=== PATIENT | female | born 1990 | race African-American/Black ===

== ENCOUNTER 2018-05-01 15:31 | Emergency (ER) | payer OTHER ==
--- NOTE | 2018-05-01 15:44 | PDOC ---
Rapid Medical Evaluation Chief Complaint: Cold Symptoms Time Seen by Provider: 05/01/18 15:39 Medical Evaluation: Allergies Allergy/AdvReac Type Severity Reaction Status Date / Time No Known Allergies Allergy Verified 10/15/15 23:13 05/01/18 15:43 I have performed a brief in-person evaluation of this patient. The patient presents with a chief complaint of: COUGH, RUNNY NOSE , SORETHROAT X 2 DAYS Pertinent physical exam findings: well, congested, moist cough I have ordered the following: Urine;UCG, Rapid strep The patient will proceed to the ED for further evaluation.
[2018-05-01 15:48] VITALS: BP 124/88; PULSE 109; TEMP 98.8; BMI 19.6
--- NOTE | 2018-05-01 16:20 | PDOC ---
History of Present Illness - General Chief Complaint: Cold Symptoms Stated Complaint: COLD SYMPTOMS Time Seen by Provider: 05/01/18 15:39 History Source: Patient Exam Limitations: Clinical Condition - History of Present Illness Initial Comments: 05/01/18 16:14 Patient with history of 12 years smoking history present with complain of three- day history of chest tightness, fatigue, sore throat and body aches. Patient reported smoking 8 cigarettes a day and suddenly quit 3 weeks ago. Denies fever , chills, dizziness, chest pain, palpitations, shortness of breath, sweats Timing/Duration: other (3 days) Past History - Past Medical History Allergies/Adverse Reactions: Allergies Allergy/AdvReac Type Severity Reaction Status Date / Time No Known Allergies Allergy Verified 05/01/18 15:43 Home Medications: Ambulatory Orders Ipratropium [place]ez 2 spray NS BID PRN #1 spray 05/01/18 Methylprednisolone [Medrol Dose [place]] 4 mg PO ASDIR #21 tablet 05/01/18 COPD: No - Suicide/Smoking/Psychosocial Hx Smoking History: Former smoker Have you smoked in the past 12 months: Yes Number of Cigarettes Smoked Daily: 4 If you are a former smoker, when did you quit?: 30 MONTHS Information on smoking cessation initiated: No Hx Alcohol Use: Yes (occasional) Drug/Substance Use Hx: No Review of Systems - Review of Systems Able to Perform ROS?: Yes Is the patient limited Polish proficient: No Constitutional: Yes: Malaise. No: Chills, Fever, Weakness HEENTM: Yes: See HPI, Throat Pain. No: Eye Pain, Blurred Vision, Tearing, Recent change in vision, Double Vision, Cataracts, Ear Pain, Ocular Prothesis, Ear Discharge, Nose Pain, Nose Congestion, Tinnitus, Nose Bleeding, Hearing Loss , Throat Swelling, Mouth Pain, Dental Problems, Difficulty Swallowing, Mouth Swelling, Other Respiratory: No: Cough, Orthopnea, Shortness of Breath, SOB with Exertion, SOB at Rest, Stridor, Wheezing, Productive cough, Hemoptysis, Other Cardiac (ROS): Yes: Chest Tightness. No: Chest Pain, Edema, Irregular Heart Rate, Lightheadedness, Palpitations, Syncope, Other ABD/GI: No: Abdominal Distended, Abd. Pain w/ defecation, Blood Streaked Bowels , Constipated, Diarrhea, Difficulty Swallowing, Nausea, Poor Appetite, Poor Fluid Intake, Rectal Bleeding, Vomiting, Indigestion, Abdominal cramping, Tarry Stools, Other All Other Systems: Reviewed and Negative *Physical Exam - Vital Signs Last Vital Signs Temp Pulse Resp BP Pulse Ox 98.8 F 109 H 16 124/88 100 05/01/18 15:39 05/01/18 15:39 05/01/18 15:39 05/01/18 15:39 05/01/18 15:39 - Physical Exam Comments: 05/01/18 16:21 GENERAL: Well developed, well nourished. Awake and alert. No acute distress. HEENT: Normocephalic, atraumatic. PERRLA, EOMI. No conjunctival pallor. Sclera are non-icteric. Moist mucous membranes. Oropharynx is clear. NECK: Supple. Full ROM. CARDIOVASCULAR: Regular rate and rhythm. No murmurs, rubs, or gallops. Distal pulses are 2+ and symmetric. PULMONARY: No evidence of respiratory distress. Lungs clear to auscultation bilaterally. No wheezing, rales or rhonchi. ABDOMINAL: Soft. Non-tender. Non-distended. No rebound or guarding. No organomegaly. Normoactive bowel sounds. MUSCULOSKELETAL Normal range of motion at all joints. EXTREMITIES: No cyanosis. No clubbing. No edema. No calf tenderness. SKIN: Warm and dry. Normal capillary refill. No rashes. No jaundice. NEUROLOGICAL: Alert, awake, appropriate. Gait is normal without ataxia. PSYCHIATRIC: Cooperative. Good eye contact. Appropriate mood General Appearance: Yes: Nourished, Appropriately Dressed. No: Apparent Distress ED Treatment Course - ADDITIONAL ORDERS Additional order review: 05/01/18 15:44 Group A Strep Rapid Antigen - Preliminary Throat - RADIOLOGY Radiology Studies Ordered: Category Date Time Status CHEST PA & LAT [RAD] Stat Radiology 05/01/18 16:12 Ordered Medical Decision Making - Medical Decision Making 05/01/18 16:22 Patient with history of 4 years mode in history present with complain of bodyaches, nasal congestion, chest tightness and malaise for 3 days. Patient also with complain of throat irritation for same. Exam unremarkable. Rapid strep and throat culture ordered. Chest x-ray ordered. Symptoms likely URI with bronchospasm. Patient will be treated outpatient for URI if negative x-ray. 05/01/18 17:38 x-ray shows no acute pathology. patient stable for home discharge on medropak and atrovent nasal spray for URI *DC/Admit/Observation/Transfer Diagnosis at time of Disposition: URI (upper respiratory infection) Qualifiers: URI type: unspecified URI Qualified Code(s): J06.9 - Acute upper respiratory infection, unspecified Fatigue Qualifiers: Fatigue type: unspecified Qualified Code(s): R53.83 - Other fatigue Pharyngitis Qualifiers: Pharyngitis/tonsillitis etiology: unspecified etiology Qualified Code(s): J02.9 - Acute pharyngitis, unspecified - Discharge Dispostion Disposition: HOME Condition at time of disposition: Stable Decision to Admit order: No - Prescriptions Prescriptions: Ipratropium [place] 2 spray NS BID PRN #1 spray PRN Reason: nasal congestion Methylprednisolone [Medrol Dose [place]] 4 mg PO ASDIR #21 tablet - Referrals Referrals: Verito Estrada MD [Primary Care Provider] - - Patient Instructions Printed Discharge Instructions: DI for Viral Upper Respiratory Infection -- Adult Additional Instructions: No chest x-ray was normal. your rapid strep was negative. you will be contacted with throat culture results. Take medication as prescribed. Increase fluid intake. Follow with primary care - Post Discharge Activity
== END 2018-05-01 17:45 | disposition home or self-care (01) ==
LOC: JERFT 15:31 → JER 15:31 → JERFT 17:45
DX: J06.9 Acute upper respiratory infection, unspecified (principal); R53.83 Other fatigue; J02.9 Acute pharyngitis, unspecified; Z87.891 Personal history of nicotine dependence
CPT/HCPCS: 71046-TC-FY; 84703; 87070; 87430; 99281-25